=== PATIENT | male | born 1995 ===

== ENCOUNTER 2023-12-26 11:18 | Emergency (ER) | payer OTHER ==
[~2023-12-26] VITALS: Ht 165 cm; Wt 54.4 kg
[2023-12-26] MEDS ORDERED: Acetaminophen/Hydrocodone 5 MG/325 MG TABLET PO ONE (11:35)
[2023-12-26] MEDS ORDERED: NAPROSYN500 MG PO (13:02)
== END 2023-12-26 14:53 | disposition home or self-care (01) ==
LOC: ED 11:18
DX: S86.912A Strain of unspecified muscle(s) and tendon(s) at lower leg level, left leg, initial encounter (principal); M25.462 Effusion, left knee; V80.010A Animal-rider injured by fall from or being thrown from horse in noncollision accident, initial encounter; Y93.89 Activity, other specified; Y92.89 Other specified places as the place of occurrence of the external cause; Y99.8 Other external cause status